=== PATIENT | female | born 1995 | race Caucasian/White ===

== ENCOUNTER 2021-10-09 11:35 | Emergency (ER) | payer OTHER ==
[~2021-10-09 11:35] MED LIST: CLEOCIN300 MG PO; ETODOLAC500 MG PO; MOTRIN600 MG PO
== END 2021-10-09 12:40 | disposition home or self-care (01) ==
LOC: FER 11:35
DX: S63.501A Unspecified sprain of right wrist, initial encounter (principal); Z88.1 Allergy status to other antibiotic agents; Z88.2 Allergy status to sulfonamides; X50.1XXA Overexertion from prolonged static or awkward postures, initial encounter; Y92.89 Other specified places as the place of occurrence of the external cause; Y99.0 Civilian activity done for income or pay; Z28.310 Unvaccinated for COVID-19
CPT/HCPCS: 73110